=== PATIENT | female | born 1965 | race Caucasian/White ===

== ENCOUNTER 2024-03-17 06:44 | Outpatient (OUT) | payer OTHER, BC, SELFPAY ==
[2024-03-17 07:01] LABS: Eosinophils Absolute Auto 0.2 10^3/uL (0.0-0.7); Eosinophils Percent Auto 5.5 % (0.9-7.0); Hematocrit 39.9 % (36.0-48.0); Hemoglobin 13.4 g/dL (12.0-16.0); Immature Granulocytes Abs Auto 0.01 10^3/uL (0.00-0.03); Immature Granulocytes Pct Auto 0.3 % (0.0-0.5); Lymphocytes Absolute Auto 1.4 10^3/uL (1.2-3.8); Lymphocytes Percent Auto 34.2 % (20.5-60.0); Mean Corpuscular HGB Conc 33.6 g/dL (29.9-35.2); Mean Corpuscular Hemoglobin 31.5 pg (26.7-34.0); Mean Corpuscular Volume 93.7 fL (81.0-99.0); Mean Platelet Volume 10.9 fL (9.5-13.5); Monocytes Absolute Auto 0.5 10^3/uL (0.3-0.8); Monocytes Percent Auto 11.3 % (1.7-12.0); Neutrophils Absolute Auto 1.9 10^3/uL (1.4-6.5); Neutrophils Percent Auto 47.7 % (43.0-75.0); Platelet Count 220 10^3/uL (150-450); Red Blood Count 4.26 10^6/uL (4.20-5.40); Red Cell Distribution Width 12.7 % (11.0-15.0)
== END 2024-03-17 06:45 | disposition home or self-care (01) ==
LOC: LAB 06:49
PROVIDERS: PCP Internal Medicine; Visit Provider Internal Medicine
DX: D70.9 Neutropenia, unspecified (principal)
CPT/HCPCS: 36415; 85025

== ENCOUNTER 2024-03-20 17:31 | Outpatient (OUT) | payer OTHER, BC, SELFPAY ==
--- NOTE | 2024-03-20 | XR_ITS ---
The [address] [address] Patient Name: RANDA LOVE MRN: [id number] date: 1965 Sex: F Assigned Patient Location: [facility] Current Patient Location: LAB Accession/Order Number: [id number] Exam Date: 03/20/2024 17:45 Report Date: 03/22/2024 06:50 At the request of: DANITA PARISI Procedure: XR hip RT 2V w/ pelvis PROCEDURE: XR hip RT 2V w/ pelvis HISTORY: Right hip pain and right buttock pain since falling one year ago COMPARISON: None. FINDINGS: BONES:No fracture, acute abnormality, or significant arthropathy. SOFT TISSUES:No visible soft tissue swelling. EFFUSION:None visible. OTHER: Negative. XR/XR hip RT 2V w/ pelvis IMPRESSION: 1. No acute bone abnormality, significant degenerative changes, or suspicious findings to account for patient's symptoms. Electronically authenticated by: YOGESH GONZALEZ Date: 03/22/2024 06:50
--- OUTSIDE RECORDS SUMMARY | 2024-03-20 17:35 | XMS_ITS | CCD ---
Author Organization [facility] Care Team Providers Care Revenue Stamp Clerk Name Role Phone KAITLYNN AMES Unavailable Unavailable KAITLYNN AMES Unavailable Unavailable JAVY HERNANDEZ Unavailable DOMONIQUE Ga V Unavailable Unavailable KWAKU, KAITLYNN Unavailable Unavailable JAVY HERNANDEZ Primary Care Physician Kaitlynn Ames Referring Unavailable Kaitlynn Ames Attending Unavailable Kaitlynn Ames Admitting Unavailable Kaitlynn Ames Attending Unavailable Kaitlynn Ames Admitting Unavailable Javy Hernandez Attending Unavailable Javy Hernandez Primary Care Unavailable Javy Hernandez Admitting Unavailable Medications Current Medications Medication Drug Class(es) Dates Sig (Normalized) Sig (Original) betamethasone 0.5 mg/ml / clotrimazole 10 mg/ml topical cream (2 sources) Azole Antifungal, Corticosteroid Start: 11-03-2019 Lotrisone 0.05%-1% Cream 1 danny, Topical, BID Rash, 15 gram, Refill(s) 1[id number] Start Date: 11/03/19 Status: Ordered phentermine hydrochloride 37.5 mg oral tablet (2 sources) Sympathomimetic Amine Anorectic Start: 01-21-2024 End: 02-21-2024 take 1 tablet by mouth once daily 30 minutes after breakfast Phentermine (Adipex-P) 37.5 mg tablet Active 37.5 MG PO Daily February 21, 2024 1:49pm must administer 30 minutes before or 1-2 hours after breakfast Problems Problem Classification Problem Date Documented Da te Episodic/Chronic Diseases of white blood cells (1 source) Neutropenia; Translations: [Neutropenia, unspecified] 02-04-2024 Chronic Other eye disorders (2 sources) Dry eyes 11-03-2019 Episodic Other nutritional; endocrine; and metabolic disorders (1 source) Obesity; Translations: [Obesity, unspecified] 02-21-2024 Chronic Other nutritional; endocrine; and metabolic disorders (2 sources) Obesity, unspecified; Translations: [Obesity, unspecified] 01-21-2024 Chronic Other nutritional; endocrine; and metabolic disorders (2 sources) Weight gain 11-03-2019 Episodic Other skin disorders (2 sources) Eruption 11-03-2019 Episodic Residual codes; unclassified (1 source) Menopause present; Translations: [Asymptomatic menopausal state] 01-21-2024 Episodic Residual codes; unclassified (2 sources) Asymptomatic menopausal state; Translations: [Symptomatic menopausal or female climacteric states] 01-21-2024 Episodic Unclassified (2 sources) Patient encounter status 11-03-2019 Results Test Name Value Interpretation Reference Range Facility [facility] 03-17-2024 L Specimen: [id number] Received: 03/17/24 Status: VASILIY Vaughan Num: [id number] Spec Type: Impression Subm Dr: Javy Hernandez DO Tissues: PATHPER Procedures: PATHREVIEW Age/ Patient Sex Location Account Attending Physician Joy Pascual 58/F [facility] [id number] Javy Hernandez DO SPEC NUM: [id number] RECD: 03/17/24 STATUS: VASILIY VAUGHAN NUM: [id number] ANNETTE: 03/17/[address]: Javy Hernandez DO ENTERED: 03/17/[address]: Maira Gandhi SPEC TYPE: Impression DEPT: CHRISTINA Dacosta ENTERED BY: [id number] RECV BY: [id number] ORDERED: PATHREVIEW ORDERED: PATHREVIEW Pathologist Review Absolute neutropenia with occasional atypical lymphocytes. Atypical infection should be ruled out. [id number] -------- -------- Specimen: [id number] Received: 03/17/24 Status: VASILIY Vaughan Num: [id number] Spec Type: Impression Subm Dr: Javy Hernandez DO Tissues: PATHPER Procedures: PATHREVIEW -------- Patient: Joy Pascual [id number] (Continued) -------- Signed (signature on file) Nav Bell MD 03/17/24 1552 Normal [facility] Basophils Auto (Bld) [#/Vol] on 02-04-2024 Basophils (Bld) [#/Vol] 0.0 10 3/uL 0.0-0.1 [facility] Basophils/100 WBC Auto (Bld) on 02-04-2024 Basophils/100 WBC (Bld) 1.2 % 0.2-2.0 [facility] Cholesterol in LDL Calc [Mas s/Vol]on 02-04-2024 Cholesterol in LDL [Mass/Vol] 69.0 mg/dL [facility] Comment on above: <100 mg/dl [id number] 0-129 mg/dl NEAR OR ABOVE [id number] mg/dl BORDERLINE [id number] mg/dl HIGH>190 mg/dl VERY HIGH Cholesterol in VLDL Calc [Ma ss/Vol]on 02-04-2024 Cholesterol in VLDL [Mass/Vol] 10.6 mg/dL [facility] Eosinophils/100 WBC Auto (Bl d)on 02-04-2024 Eosinophils/100 WBC (Bld) 5.5 % 0.9-7.0 [facility] Erythrocyte distribution wid th Auto (RBC) [Ratio]on 02-04-2024 Erythrocyte distribution width (RBC) [Ratio] 12.5 % 11.0-15.0 [facility] Estimated glomerular filtrat ion rate (GFR) non- Americanon 02-04-2024 GFR/1.73 sq M.predicted among non-blacks MDRD (S/P/Bld) [Vol rate/Area] mL/min/{1.73_m2} >=60 [facility] Globulin Calc (S) [Mass/Vol] on 02-04-2024 Globulin (S) [Mass/Vol] 3.5 g/dL [facility] Hematocrit Auto (Bld) [Volum e fraction]on 02-04-2024 Hematocrit (Bld) [Volume fraction] 43.5 % 36.0-48.0 [facility] Hemoglobin [Mass/volume] in Bloodon 02-04-2024 Hemoglobin (Bld) [Mass/Vol] 14.1 g/dL 12.0-16.0 [facility] Laboratory - Chemistry and C hemistry - challengeon 02-04-2024 Albumin [Mass/Vol] 3.5 g/dL 3.4-5.0 [facility] ALP [Catalytic activity/Vol] 114 U/L 46-116 [facility] ALT [Catalytic activity/Vol] 21 U/L 14-59 [facility] AST [Catalytic activity/Vol] 10 U/L 15-37 [facility] Bilirubin [Mass/Vol] 0.4 mg/dL 0.2-1.0 [facility] Calcium [Mass/Vol] 9.2 mg/dL 8.5-10.1 [facility] Chloride [Moles/Vol] 106 mmol/L 98-107 [facility] Cholesterol [Mass/Vol] 159 mg/dL <=200 [facility] Cholesterol in HDL [Mass/Vol] 80 mg/dL 40-60 [facility] Comment on above: > or =60 mg/dl - LOW CARDIOVASCULAR RISK<40 mg/dl - HIGH CARDIOVASCULAR RISK CO2 [Moles/Vol] 31.9 mmol/L 21.0-32.0 [facility] Creatinine [Mass/Vol] 0.96 mg/dL 0.55-1.02 [facility] GFR/1.73 sq M.predicted MDRD (S/P/Bld) [Vol rate/Area] mL/min/{1.73_m2} >=60 [facility] Glucose [Mass/Vol] 86 mg/dL 74-106 [facility] Potassium [Moles/Vol] 4.8 mmol/L 3.5-5.1 [facility] Protein [Mass/Vol] 7.0 g/dL 6.4-8.2 [facility] Sodium [Moles/Vol] 144 mmol/L 136-145 [facility] Triglyceride [Mass/Vol] 53 mg/dL <=150 [facility] TSH Qn 1.614 m[IU]/L 0.358-3.740 [facility] Urea nitrogen [Mass/Vol] 14.0 mg/dL 7.0-18.0 [facility] Urea nitrogen/Creatinine [Mass ratio] 14.6 mg/mg [facility] Laboratory - Hematology and Cell countson 02-04-2024 Immature granulocytes/100 WBC (Bld) 0.0 % 0.0-0.5 [facility] Leukocytes [#/volume] correc alannah for nucleated erythrocytes in Blood by Automated counon 02-04-2024 WBC corrected for nucl RBC Auto (Bld) [#/Vol] 3.5 10 3/uL 4.0-11.0 [facility] Lymphocytes Auto (Bld) [#/Vo l]on 02-04-2024 Lymphocytes (Bld) [#/Vol] 1.4 10 3/uL 1.2-3.8 [facility] Lymphocytes/100 WBC Auto (Bl d)on 02-04-2024 Lymphocytes/100 WBC (Bld) 41.2 % 20.5-60.0 [facility] MCH Auto (RBC) [Entitic mass ]on 02-04-2024 MCH (RBC) [Entitic mass] 30.8 pg 26.7-34.0 [facility] MCHC Auto (RBC) [Mass/Vol]on 02-04-2024 MCHC (RBC) [Mass/Vol] 32.4 g/dL 29.9-35.2 [facility] MCV Auto (RBC) [Entitic vol] on 02-04-2024 MCV (RBC) [Entitic vol] 95.0 fL 81.0-99.0 [facility] Monocytes Auto (Bld) [#/Vol] on 02-04-2024 Monocytes (Bld) [#/Vol] 0.4 10 3/uL 0.3-0.8 [facility] Monocytes/100 WBC Auto (Bld) on 02-04-2024 Monocytes/100 WBC (Bld) 11.8 % 1.7-12.0 [facility] Neutrophils Auto (Bld) [#/Vo l]on 02-04-2024 Neutrophils (Bld) [#/Vol] 1.4 10 3/uL 1.4-6.5 [facility] Neutrophils/100 WBC Auto (Bl d)on 02-04-2024 Neutrophils/100 WBC (Bld) 40.3 % 43.0-75.0 [facility] No Panel Informationon 02-03 Eosinophils # (Auto) 0.2 10 3/uL 0.0-0.7 [facility] Immature Granulocyte # (Auto) 0.00 10 3/uL 0.00-0.03 [facility] Nucleated Red Blood Cells/100 WBC 0 [facility] Platelet mean volume Auto (B ld) [Entitic vol]on 02-04-2024 Platelet mean volume (Bld) [Entitic vol] 11.2 fL 9.5-13.5 [facility] Platelets Auto (Bld) [#/Vol] on 02-04-2024 Platelets (Bld) [#/Vol] 223 10 3/uL 150-450 [facility] RBC Auto (Bld) [#/Vol]on RBC (Bld) [#/Vol] 4.58 10 6/uL 4.20-5.40 [facility] Serum or plasma albumin/glob ulin mass ratioon 02-04-2024 Albumin/Globulin [Mass ratio] 1.0 {ratio} [facility] Serum or plasma anion gap de terminationon 02-04-2024 Anion gap [Moles/Vol] 10.9 mmol/L [facility] Serum or plasma total choles terol/high density lipoprotein (HDL) cholesterol mass concepción 02-04-2024 Cholesterol.total/Ch olesterol in HDL [Mass ratio] 2.0 {ratio} [facility] Comment on above: 3.3 - 4.4 LOW RISK4. 4 - 7.1 AVERAGE RISK7.1 - 11.0 MODERATE RISK>11.0 HIGH RISK Coding Summary.on 02-07-2023 Coding Summary. CD:[id number] W w+PGhlYWQ+TL3RDPUxY84 uyGYgvD3lO3BTCMbHTxle UCMYHAfLTnPyjwSmOS3sn XNjZXJu IC8+LJ9lQGKdKdheuGBib 4H7wHU6Q80giz6eTEvffZ Y4CSQrWmPdpdbet7luzRi 6IDcuNmluOyBt CYEerZ95UCO0pK44Nu36q EUxcUBfj8ocxUp0CeNqPX XtQFM5bYfaINwuo9MwWVW bP16ovGRtk1V2 JJVreOmbxWQjPsNcbKK5o I4mZKtocyxrm6hfhzxsHo g9rg24zCQzh6N2mVA8D8X kmeY2KBNtlVIr JyzgnVMWmE3brtrmm5wje hxvZrNyVVViOFr2GBa6UG GupJepPrJyFJ17AUS5ZRJ ndwUbC0UrATJc jSaoHgT2s6C7Od7XA9DVF ktqI5SNVOUMHNmuhSF+PC 64zo72X9WqGzpbJmi7EAN dCJT3zTG6bZ1u ADZlWQsop0I0rRJ8E8Xup jPekw4qw8ueKLXgRXenG5 6ouVFsx5I4HMWeqAR2FOM dzSgnMsJhpM33 Oyc+RTRdgUoaq5ZiDpjlq 4spc7fggRb3EkyoJDAvhh MsdVjhSYH8l0SdZu1yUTH gbUX2sDD0hH9x MfVcJhV9AEyfN217JqJxd WXtVbskF21yC4TggWF+PH ErQim4RSBebOooUN5cK3T hZGRpbmctbGVm pJupRG4oHVYxyflvEPCtm A2jCPDaA7k9WlPxCkG3TJ kbC0EuRIWmdubyBv98vM9 pGgUjMmC8DClw I1MvgaU4GFLvfZRuIBzhV XR9Y26ki4H2BMEqGIBoXS L2mFE6oY7fnOyjppthqLK mdDsgdmVydGlj NWaoNGwuU461TUCjaRlfN kNvZGluZyBEYXRlOiAgMD MvMzAvMjAyMzwvdGQ+PHR hAAE9iSblLGSi wMTjSWykDv9blBbwyVjwJ Q9xODCdnuflQCJptC6tYS RsrVZmjSmjUU3zAQIovqb wu330NwBkZOC1 KJIuiTJhT8FefA4aZyJlW VBxBTOdK6GaqOFcIClcS6 24YTtbMpC6XRWgrrIhV0K sLWFsaWduOiB0 a4Y1Lh5Mn3GywqhaO9Rgb BKvYnVyRevnPQk0G8VrDf wvdHI+SK86WYGaMZ57WRg 2PXL0bFifQTdi WWYzE4HakR1dBpDuMZSzW GRkOyc+PHRhYmxlIHdpZH RoPScxMDAlJyBzdHlsZT0 rOn4gWDUdNRBp xEzgoGAoKhOec2gpQQZuH GcdPJ5ygNdoP0HtmYT1UY Jrb4s0Lq00N58cA3AwmXV +ZJPgrSD8cRJ0 oN4gYrYaZiE8MOahO565N sMecODcBahqx8hzp4eqnG l9GuK3JZXyjiNkvWebXKM 7m0OmDl90S19h IHdpZHRoPSIxNSUiIHZhb Proqr3qcZ0aJq6+PGNvbC E5iZV1tP6kMnBzMyX1NKe gR571DwXamPSx Prwme5enf9groTd9ByKpE VKxwtSkmPdgDCX5m2HuWn 50A2YrhTrpd2ToQct7iq8 5oGEcd0X0wPF9 U0EaBPDgxeorwVUosJztW K9zJANddqnoPCJkxY0nME OsV6d7UtPyXuL4MXugS7S ksbN8JLIppWQg ATMhlRCUhS6bwjthu7pow jwcIhPlWWRvIKu9CNi8GP ZvnJmzXsNvOHR4KcR2EEG 5xMVgsQ6cvJoz waofaX3xVar+MMF9fSGix BLUVT6cZmacfAM+PHRkIH Y5gZfnBTeiFKWryT6eDUE bZ4m8WeDuHrU9 WOkhE2ViwdL5FDIeoFErL SEojOGOaX9ylwljw3lcmi ilVqMqPWNtOPt7LPi0BWP saWduOiBsZWZ0 VyR1OBJ6tCZvgI8onXotp akwbU4eXwr+QmlydGggRG Y1PTs3O8SiWeu3XWDnpUu dEK2skPEzAVhf Ms6azSykvYrlPS9xSSJrh rnmw319IzDay4udUGPqnH YeFJwwQPB2J78vh2M2KAR nUAOhJIN9tEO5 fP0tgUxfrhkmmIIlqYsec wKxfTccLLdaNNrnC683AD JaiHpwFaQbUNi1F2NjNxw 6CHYjsYwkWN2s hXOtNJpeCi9pnIeujOabW T1fDHCastfcd101EoGvb6 nqUZBusTZdQXuwMLI0V04 ck1O5YBQmAQVa VQJ9xPO2gG3qwMunsoktg GVmdDsgdmVydGljYWwtYW vrU210TWLwdOhaWaNyjQk 7S1IeYqq7DSGb gTtwKP6hrALlOYakGc3te FvonRceHJ4mLHRspbbop6 48InWho5hdTEHmuHKgVEi kCAA2H02cs3W4 CFAmEIHgCWW3vBB6uF7yk GlnbjogbGVmdDsgdmVydG ttSUyiFDzlE382TTDynAs nPlBhdGllbnQg ERymHMt3H0YyClhllVS+P S98MTJtHB71lKQsdJIja1 kcbSn6KsWwUZUqLCR4jEu gRRpbk7WfMAYh N42iwCLgo1S7ICMyqRsui QVhMuIjiTB5rV0hVLgeln gka8wgtxtmCffjf7vysz2 7nT94J40wJZqh ZHRoPSIzMCUiIHZhbGlnb p3lwZ4dUz7+NGYhyOI1tV V2hK9jFLIyKuP4IHnnF30 9InRvcCIvPjxj w4zci7urvSr8SoR6BSUxn jHneTxkPAG6g2LlXi88N9 9sIHdpZHRoPSIyMCUiIHZ kyJibma2laR1p Ii8+GWCilUC8mTF5aW3jA hYeShQ1CGmmV984NoQwqS NkDhddA22eU9XpuQS+PHR rFze2BNVtfZny TH0ynFNyMKvoHm5zLLY9X eFnFpQeJBxmX6VbAHWcng svfthkwKX4ZRDjZFWpjE2 1Rq7kcRylHWRv yCOHsJ7dukycb6bdmtynB hOxYSMzEGl7HLb3RGXlsY coLfMyHMQ5UaW5IDD5wLK zmR2lyXgwnyky iZ7wT4TcYQJvtwqyFl67u S6iUoYeQvQ0JEbzMez+Vk JRSN7MVL7HHVBNYD5HCTV gTTwvdGQ+PHRk KUQ1dGtwADmkTPWogJ6hB HKrB0h4SqOnGnM4LQbyS8 CgBFPisozySn99oK7uFpK kEtU7FCqfZ5Ry loZ3WMWssKCpWJocBTW0N 77ma4Y7MKDmRMGjMEI0kI N9qJ7nrCoyhfffeSZmzBu gdmVydGljYWwt MDkuM240PUKkvZncUePlO hF6YsH7Sxh2I8HzDzg1QB YzhZyhSG8hpNNaFHspTj9 jbTwrqVfyPB8n GPFrpmbbDCMerH3pYQUbb TAbcCqvSA1nQSYwcywrx2 79FmJzXXH1BVUupSTcB7U dmD3rTtFpLYIk QEApZ2XvsODgBRtfN673W BjaDzE6PXAouaHzU2NiII EjqHkfYbQ6e3K3Jh74FGH ZZWFyczwvdGQ+ DNRmVUX1wOjjCBxuXJDgc I6fDUBmL1u0SfDyTeE3ID dcU1VeYUEzbtjgTy54vP4 nIdXgLcY6ZUku O0GyspC4ZTDoySUtMKthZ ST0R40pu0M3VDWjXCWcXN X3oDV2cO3gyQwrbajsiVB mdDsgdmVydGlj WIbeDTgeJ395JFQbvQgiP kZlbWFsZTwvdGQ+PHRkIH O1sLayYYsdBHGrmV9xYGN oZ3o6TuVlVnT0 ZDywG2KtOHNpsvveEn17f J9bUjQlNgZ3ETnxH8Fgrm U3RLIabPGqNZkfDQU2W98 ao9X9YJUlFUBz FDD9aUW7nD7gfMuzudvxm GVmdDsgdmVydGljYWwtYW frP761EQQmuTptQz67cYK knJsaatX2W0Ek PjwvdHI+IR76TLErJE28p GYebDPfi7zhqOq1JxFyMA JjBLD9fIusECtpr9XuCLX wF54anLBks8L9 MVRjdSxwfFDsLoZhdCP0b C0qEMxmhhcws4jpugdvXb pkw5yzxj75rR54O08jPQj pZHRoPSIzMCUi VLAqmZhkea2hsU9jMd8+P WVdyFY9zUK9kC1fBaFpNk W7NMftL364YhHhsDAhDzw nq9vpx4zozUt4 TsVbQGVfytCyxComSKZ0m 1MwPo71U27yIVeoOSOqDV SnWQMhATEbsUepxm2trX9 wIi8+ST9aj3wh eg96zZ87zSN+RPLjJWE3y VxzOXrcUAQmjF2kKOkjTs A8GABjIaBwoU89nIIiFMs iLx3ozDxjbZfo HR2bXLDyzhplf771YzXtg 3nrQCOqtNFvAJiqPEQ6H4 1fh6O7WUSpFHJzTYE4yDY 5pA1yiUeuwcuy bGVmdDsgdmVydGljYWwtY JamU455CKUwqUuxHbDcaQ PjY7eadwLNMU8aUihvcNJ +NMVpRJF7cOcz BQigIJApuI6iWSPjN1h5R oKkHpG8LZciU1BcptJ5LH SrbGMfWGLtxFLPuW4kyli vh3sqwbufAsSa CFDtOWe6HNr2THBulNvlX aRlITX2NnH5XUJ4vLZfqW 8zvFrychyfaV7vQel+Rkl OOjwvdGQ+PHRk ZWL1wVjuUUzkYTAsaM7wS CMsH2s7FdKyYfP9NVvjB3 JtnbM2MPCjkIRwIQGxgUB BsH0sgrbil9gd bktaAeEyIZOsHHq7OOg3V MQqkQzlKoVmARM7PcP8HF J2gFUhiV8pzRhcjzfywZ2 wOyc+TVJOOjwv dGQ+HEXvJJO4bTauAEkeA XOvbF9nWDTaY4r2AbOnUa K0RFtiB2SsorQ2KCIywIQ vFSYtkVANcB8q cdqvk0eqvwjsDbIeQMBxX Aq9QVp5MCLylFsgQrNaJK F1ZvA2OCN1tEMsiV4sgCb pfownzD0bXzu+ DJL8QIC4DZ81VX56Q6NxK jwvdGFibGU+PHRhYmxlIH dpZHRoPScxMDAlJyBzdHl pOP6zHv6zYXQh LWNvbGxh (more content not included)... Normal [facility] Mamm Screen w/CAD if perf and 3D Bilon 01-31-2023 [place] Mamm Screen w/CAD if perf and 3D Ricky Exam Date/Time: 01/30/2023 07:56 EDT Reason for Exam: SCREENING Report IMPRESSION: BIRADS 1 NEGATIVE, NORMAL INTERVAL FOLLOW-UP.12 MONTH RECALL. CLINICAL HISTORY: SCREENING. COMPARISON: 10/31/2019. COMMENT: Routine views and tomosynthesis views of both breasts were obtained. There are scattered areas of fibroglandular density. No dominant breast mass nor neoplastic calcifications are identified in either breast. There has been no significant change from the previous exam. The examination was reviewed with Computer Aided Detection. Breast Density: No Mammography is very important to your health. The current [employer] and National [employer] guidelines recommends annual mammography beginning at age 40. This facility utilizes a reminder system to ensure all patients receive reminder notifications at the appropriate time based on the recommendations of this exam. Board Certified Radiologists. Accredited by the ACR and FDA. Ordering Provider: Kaitlynn Ames FINAL REPORT Dictated: 01/31/2023 2:22 pm Bhargav Alba M.D. Signed (Electronic Signature): 01/31/2023 2:22 pm Signed by: Bhargav Alba M.D. Transcribed by: SARAH Technologist: [facility] Assessment: BI-RADS Category 1-Negative Recommendation: Normal interval follow-up Normal [facility] Consent for Treatmenton 01-10 Consent for Treatment [id number] .[id number]:[address] [facility] Physician Orderon 01-10-2023 Physician Order [id number]#1 .00CD:[address] [facility] PAP [id number] 08-07-2022 Cytology report Cyto stain Doc (Cvx/Vag) Note Invalid Interpretation Code [facility] Comment on above: Result Comment: TEST S RESULT FLAG UNITS REF RANGE LAB Clinician Provided Cytology Information Source.............[employer] No. of containers..01 ThinPrep Vial DIAGNOSIS: 01 NEGATIVE FOR INTRAEPITHELIAL LESION OR MALIGNANCY. Specimen adequacy: 01 Satisfactory for evaluation. Endocervical and/or squamous metaplastic cells (endocervical component) are present. Performed by: Billy Gray Wedding Designer (ASCP) . 01 Note: Note 01 The Pap smear is a screening test designed to aid in the detection of premalignant and malignant conditions of the uterine cervix. It is not a diagnostic procedure and should not be used as the sole means of detecting cervical cancer. Both false-positive and false-negative reports do occur. Test Methodology: Note 01 This liquid based ThinPrep(R) pap test was screened with the use of an image guided system. FLAG LEGEND: L-Low Normal,H-High Normal,LL-Alert Low,HH-Alert High <-Panic Low,>-Panic High,A-Abnormal,AA-Critical Abnormal Performed at: [address] [address] Sveta Masters MD, Performed By: #### 3 [id number] #### [facility] [address] [place] [id number] HPV 16+18+31+33+35+39+45 +51+52+56+58+59+66+6 8 DNA Probe+sig amp Ql (Cvx) Negative Invalid Interpretation Code Negative [facility] Comment on above: Result Comment: This nucleic acid amplification test detects fourteen high-risk HPV types (16,18,31,33,35,39,45,51,52,56,58,59,66,68) without differentiation. Performed at: [address] [id number] MD Guerrero Bangura Performed at: = [address] [id number] MD Guerrero Bangura Performed By: #### 3 [id number] #### [facility] [address] [place] [address] Coding Summary.on 08-01-2022 Coding Summary. CD:[id number] G h0bWw+PGhlYWQ+UH8MWHF hZ87lbVImgQ0RG7sLRP8M HOTNBOEKBJ6GEG4bjCW3W AdjT6YgoiWv BcfyeVVbFW81KEe6QYS9n NmgJQxdaJ3xsSNkL7u6Fe XkMQ74hO61CEkiXRQlOnI 3LjZpbjsgbWFy U7xsKlImyXDeIui+PHRhY mxlIHdpZHRoPScxMDAlJy YpnDduLG4fQm7cPEMmGRX vbGxhcHNlOiBj k4usSPJuWHpnLK4hqWftQ 6AggVD2NXWvc9s4Ty50aI I+WDDjXAU0qPclIZuwh51 6XnCmh0wfYEM6 kSWfCAynURP5B64wg2N2W VOdZBQsGYW6hPP5bA0qvB yirzyzG7JmaTTiShS1HGY 2fMJjhY3nyTum cdtnlI0iGbj+Z65HDY0JO IUILP0ZFpg1P9SzMfnncR I+NF60DTBtUG95qMAilOY mc3gpaIl4HeSd YTMwVQH4oBlmNQqoz2PrI GHdD70ceULnv1Z1NOYotI rafKTgMuLioYN7iP3lLMe yktmdf6ewobsc Zloos9nbye28qY49K42dV BgkZSXpTRT0FMKuPUOlvC pupi3wkP3hMq1+UJrsi2w ci2phuPx6RxUm RQIavoAtnSfqQTT6b1WqZ q08P2JmnIzqw6QlEfi6sg 21nOEnd9Q8xIS7YZveYSD ixS2mKYwjJaO4 HHDnKiPitX98iXBoQTzpL s6lwAbksMhkPG1xWEElgw qbZOTkvF0wQLKhqKNbwVn uOT4pQMXaqquf d176QgFzVHO2AQQlqKVqE 0HptL2nUkOhUFKpWLUwC7 PquQRyPCobZ994AOzgOlA 5VVHrwoLmM2Lw ZJQffWyzDhU1l9K1Jp2Yt 7LxmhjtMVF2CEsbFTX4Jk DhMcRdBzC3B8InAwj7ODR jpDerRW8hY6Qr KCKbqrgjbaerxJQ3DXCvJ RHjgI20bJXxMKbgWv3rs1 K5y977QELpOHTwkR62Du2 udDogMTBwdCBU wE2jjjgcd9mpkajqVoImN OXnTAy9JHp8AHTvpRjzAd YjTNW6KhM7MXG0pHQtaJ9 vnKljhfdygO0d Oyc+M97syF1dQSX3DUF2s puwHCElclHcDI68JT57N8 RyPjwvdGFibGU+PGRpdiB svOqeLW0xEuGf a9ogl3VjTMisX6CoZHIaE AqjMaj8XDSwQOU0aSX6kM 2fDBAxRKohe8D9nWK8H2S rqgEkgk8xt4hl FRIaPKksH80riNZke0Z4Y BIupCT1ENDprYvkOwLrgK 93Oyc+DDBvtDims0NyZrd vm4gdv0mjyNm9 QzJkOKDewjOcjDuwEWF8i 7RpQu48T84bHJorFCZuMQ UyFGXjGEIiaGfpwo4ofM7 wIi8+PGNvbCB3 vHN1nN3kONAxPxL3JDlcC 853WiSjqLHtXgeer2wjy6 nucNz9YmUvDMMmnvYqlFr bCXE6h9OcZw50 W00kRUkyBVOaPRHjZXBcP HHnaUwiur8jsH1gVn2+PC 8sc8pvjj27gC49zGB+PHR pSIO1iDejZGrb QARzjC9dZBjiLkJ5NKBmK zCyvI31bHXeMEalAa7jwI aqzAkwEA3kPKZzgydje99 6VkIdb2jzZJAt tHClIWepCCM5Q35wa7E9W PTqKILdEAD7rTJ9tF2tsF lnbjogbGVmdDsgdmVydGl tCCmsNUveT561 IHRvcDsnPlBhdGllbnQgT cKoEZj4E1KvSww9BKGhoR xkGY3piLAkGKeoYc6rcKb efJtbEI6dARZp whprz473CmCin0haTVVol VZpAOwfEYS6F82tr3L3NT QkYQLvPWO9fUJ5tW5udRu nbjogbGVmdDsg qqCbjSwvXUakWPyhM826K HRvcDsnPkJpcnRoIERhdG R8US82EO20xADxz7Q5iDP 6D6NeYMSsdfso fcstiUB0WZJpKZIswR30Z l5fmKkiYj9tIBKzWLU9YK MjgSHzL7MaeN7nVaFeXGJ yFJQoY0RjvGMn LIpgK447UTrhFhP4PAZxy jNbD2SwVGMhoHasDzA4o7 V4If3KT4X9TE39JC09oLM vi1B2oFA6Z6Um URMdqpiiokdnsIF4COViI EGhxZ09Ay1tzLsgUk2zDB GcFDX5SPXlgLBzP1OrcL8 yOiAjMDAwMDAw G0VjsJXvQRtaS456AAqgC hG4FWWavuZiJ4JeBYSfvR doHpQ3p9G8Kw2VZBw5IX6 0AF83rZFub9H1 mCN3P7AsMJPxtknousicp MB5KMWsQBEjxG48Uz7ccI dkRh4wINCnKCO3LBQsxQP iI1AotH0iQlXu ZRWtUZBeL3ZifWTsYThkG 730ZPecFaO5DCKacaMsF4 RqAVExbDbvXpK8q2U0Um5 IUQQxOF58PTS1 qPZ7GW38KD44F7VoXoolu GFibGU+PHRhYmxlIHdpZH RoPScxMDAlJyBzdHlsZT0 vHp5sJLBjETMh dKrceLCpIfEyw4daNDQgL JduRG5krMqcK3MajZR1NA Hyn9v8Rh85U72wB5LpfHE +WQOrmDU7qAB3 mP0oSyBbBuQ5CWqnE528R iJwtMDxQkala9xqb5hfqL w7NkL3FIFiwcOqmVmjHUP 3p4CrQh90J93p IHdpZHRoPSIxNSUiIHZhb Mzvlo3lwC1sUv6+PGNvbC V5vNY5oY1cJwIdVeQ0WAd rC844GjTeeRYa Qglnm4tck5jyvXj1EgDkL EGrkkZcpCeuJRK4j9VvZx 84W3JceVubi0CwCwm2gr8 2kZZli9P7fZT5 O0XxLNBqkgzbiJIejQwmI J1oTZOzidgrXUSegD5wVN AfN1e8DrUzKdD2NJrcB7W zltS1XZOrcSDz TWgfEYJ3T54ya9I0EJPoW UJtRIT7xZZ6oQ4cgZalpp ogbGVmdDsgdmVydGljYWw pRHscR149QNZu rEazZZPsaQ2jLXAyqOHdo EydHX6eUYCkgmcjMlWBOI VOVElORSwgSlVOTklFIE0 0M6FbXgr7TTAz tYlyFX0wiIOyKSubMq4he GileRzbEE7xDZAmycbzAF NqhD2hWFHehHVrkFsmVY5 jJKWyrosfp079 LlVeNDP3YNXemDJjM7Fja V4zJcAnEULjXNYpU8AyxW HgJQfeV112DRtyDoF3RSX rjuAhC4OzFMWm hQtkRkE0v0P2Bd7dYz1sM B3nIBB6RE67DM65dVYqe8 E7fMB6R6RgIQXzmnbqbxi jyTH6EOPsPLVj xK58rRZxCFnxCt5fr6V2g 620RBNzIZYdeT18Uz4prN hnVPIarVDFlC6mrsets0t vcjogIzAwMDAw CHv3NXb0SQOnpDxhOlDoD SP2XsZ1FXQ7tCIacL8dgG ccwdaijO6vAgx+NTQgWWV oiuV9L3IxOsm2 VLHcrOiqFE8uoJMiVJctP j5abIznmVfpJH4aZZVgin wlQRSxuY6fQBPdkZRpzHl nIG0yEZFtvryz e202JzJyCKS4AELooDPiI 6IoiF6sGhPtYWBbGUReF4 ScbLYgMHpuW065NJahHtR 0CXIwpeUuL7Wu EIDilPapWmV9l9T5Ks1AI S6jjUK4D2DvShy6HQPzbM lxJQ3vtDOjSPzsFe6eiHt lnPybMI7qNYUs mqllMAUvaV2aXKQzmBTwi PfgUV0dOHAnfferq637Ow JaIHU0SWHnxNBiO4WckL4 yOiAjMDAwMDAw N1IseXDlNLpoD132SJbeM dR3BPZjygQtJ5MnIWKhlT ikMvU5m4R8Qo3DWMJjIQT lxOQdUhD6F3Uq PjwvdHI+YQ39TJPjCR97o KVxjWGfp9svaPt0DcCqSS HtRWI0dJkmUIcji5LjHHQ xV63fbPHux7G9 BKXzoXvkxZBcDsBkhIL0t S4nIHbfqhpyq5niqmijLx hcx4srlq53nU42W05wQJv pZHRoPSIzMCUi SVLtyXnxuy8tiD8fXd8+P HTvmSA4tLU1xH0gCtAzNb G9FDlxF623OrDzgSRlUgv eh9oue8yttUx4 FvYlZNQhmbVyzShpQJC7b 4EbXj48Y55nOZzxOFYsNB GsRIEdIOOzpYydxb6ivX8 wIi8+JY7vu5du vi11mQ28lDF+UBFdPLS4o SyoTMvmVGOdrG5rFHanZy J8DKEpRqPzdM20uKQtOUn lLl6bpFxbtTnk TC1eWNNffmuwu512RlSjr 3sjBBAzfZUmCWuuLEU0J1 6fx4I3IVZcEDEcCEF0jTF 2dN8qdBjssoiw bGVmdDsgdmVydGljYWwtY YrtY586ZGCowAuhRxFudQ NeD2fafpKLJD7pRixgwRH +GDEfFXB5sYpk GXnvLJVkaQ1yIEEsU2h5D bLmNqP2NZmyT9FtepE9NU IgjHImPVAhlVWEnP2zsvo te4dghmgxCeXv VLKgIEv8AXt8ESRqfZofK iJnGBU6EyB3JTN9xDCxnU 1ipOgxcvgcpD4eSmg+Rkl OOjwvdGQ+PHRk XVY8gMihKUyuSZUasG1gR YGnM8g3QrVwLjT5NXktV3 JqcmR8CAZpbGRmSLFpuUW QoH2ontcxr2jd sqjeBwTeDEFrCOl8UOh4U IJmsVyqVtNiZPH1LsO7WM V2uLFlaQ9geTaypbcieB7 wOyc+TVJOOjwv dGQ+XUAuDSR6eZuqUUtjC BRawC4oWYSqX5z3BxPvRr X7GOooQ1ThptF1YRKkeCD cRCYxsRBJpV1i zbpyr7osjmepCeZbKXYfL Ss2NQy2EVLcbKmfZtBfEJ K7RrA3SDM1xNLrhY4ycAp ivkmzqK3vGiq+ CXI9KPD6VP52XM76F1QmB jwvdGFibGU+PHRhYmxlIH dpZHRoPScxMDAlJyBzdHl uUQ5nFf6sFBBj LWNv (more content not included)... Normal [facility] PAP [id number] 07-30-2022 Collection Technique SWAB-SPATULA Normal [facility] Comment on above: Performed By: #### 3 [id number] #### [facility] [address] [place] [address] Gynecological Body Site ENDOCERVIX Normal [facility] Comment on above: Performed By: #### 3 [id number] #### [facility] [address] [place] [address] Previous Cytology Negative Normal [facility] Comment on above: Performed By: #### 3 [id number] #### [facility] [address] [place] [address] Previous Treatment NONE Normal [facility] Comment on above: Performed By: #### 3 [id number] #### [facility] [address] [place] [address] Physician Orderon 07-27-2022 Physician Order [id number] [facility] MG MAMM SCREEN RICKY W CADon 1 12-09-2016 MG MAMM SCREEN RICKY W CAD [address] [place] [address] Patient: JOY PASCUAL Exam Date: 10/09/2017DOB: 1965 Gender:F : DR KAITLYNN AMES Admission #: [id number] : DR JAVY HERNANDEZ Order #: [id number] HERE TO VIEW EXAM RADIOLOGY REPORT PROCEDURE: MAMMOGRAM BILATERAL SCREENING DIGITAL WITH COMPUTER AIDED DETECTION COMPARISON: MG MAMM RICKY SCRN W CAD DIG, 11/12/2014. INDICATIONS: ENCOUNTER FOR SCREENING MAMMOGRAM FOR MALIGNANT NEOPLASM OF BREAST Calculator Name NCI Breast Cancer Risk Assessment Tool 5 Year Breast Cancer Risk 1.80%Lifetime Breast Cancer Risk 16.70%Personal Breast Cancer NoPersonal Ovarian Cancer NoTreatments NoneFamily Cancers Aunt-maternal with breast cancer at age 37; Aunt-maternal with breast cancer at age 45; Aunt-maternal with breast cancer at age 45; Mother with breast cancer at age 42; Grandmother-maternal with breast cancer at age 45. LOCATION: [facility] BREAST COMPOSITION: Heterogeneously dense, which could obscure small masses (51-75% glandular). FINDINGS: DIAGNOSTIC CATEGORY 2--BENIGN FINDING. Scattered benign-appearing calcifications are present. Scattered benign-appearing lymph nodes are present. RIGHT BREAST: No significant suspicious finding. Square marker indicates a skin blemish, no corresponding mammographic abnormality. LEFT BREAST: No significant suspicious finding. Round mole marker RECOMMENDATIONS: ROUTINE MAMMOGRAM AND CLINICAL EVALUATION. PLEASE NOTE: A NORMAL MAMMOGRAM DOES NOT EXCLUDE THE POSSIBILITY OF BREAST CANCER. A CLINICALLY SUSPICIOUS PALPABLE LUMP SHOULD BE BIOPSIED. Dictated by: Domonique Shaw MD on 10/09/2017 at 07:59 Approved by: Domonique Shaw MD on 10/09/2017 at 08:01 Normal [facility] Vital Signs Date Time Vital Sign Value Performing Clinician Faci lity 02-21-2024 13:34-0400 Body height 154.94 cm [facility] 02-21-2024 13:34-0400 Body mass index (BMI) [Ratio] 30.8 kg/m2 [facility] 02-21-2024 13:34-0400 Body weight 73.99 kg [facility] 02-21-2024 13:34-0400 Diastolic blood pressure 78 mm[Hg] [facility] 02-21-2024 13:34-0400 Heart rate 90 /min [facility] 02-21-2024 13:34-0400 Respiratory rate 12 /min [facility] 02-21-2024 13:34-0400 Systolic blood pressure 123 mm[Hg] [facility] 01-21-2024 13:40-0400 Body height 154.94 cm [facility] 01-21-2024 13:40-0400 Body mass index (BMI) [Ratio] 32.9 kg/m2 [facility] 01-21-2024 13:40-0400 Body weight 79.15 kg [facility] 01-21-2024 13:40-0400 Diastolic blood pressure 74 mm[Hg] [facility] 01-21-2024 13:40-0400 Heart rate 78 /min [facility] 01-21-2024 13:40-0400 Systolic blood pressure 104 mm[Hg] [facility] Encounters Encounter Date Encounter Type Care Provider Facility Start: 03-17-2024 End: 03-17-2024 ambulatory Javy Hernandez Facility:[facility] Start: 02-21-2024 End: 02-21-2024 ambulatory [facility] Work Phone: Start: 02-21-2024 End: 02-21-2024 Patient encounter procedure [facility] Work Phone: Start: 02-04-2024 Non-patient / Non-visit [facility] Work Phone: Start: 01-21-2024 End: 01-21-2024 Encounter for general adult medical examination without abnormal findings [facility] Start: 01-21-2024 End: 01-21-2024 Patient encounter procedure [facility] Work Phone: Start: 01-20-2024 Patient encounter status [facility] Start: 01-30-2023 End: 01-31-2023 ambulatory Kaitlynn J Kwaku Facility:[facility] Start: 01-30-2023 End: 01-30-2023 Patient encounter procedure Kaitlynn J Kwaku [facility] Start: 07-27-2022 End: 07-28-2022 ambulatory Kaitlynn J Kwaku Facility:[facility] Start: 07-27-2022 End: 07-27-2022 Lab Drop off Kaitlynn J Kwaku [facility] Start: 10-09-2017 End: 10-10-2017 Ambulatory KAITLYNN KWAKU Facility: Procedures Date Procedure Procedure Detail Performing Clinician Start: 11-11-2017 Cyst of left breast (disorder) Kaitlynn Kwaku Ligation of fallopia n tube Kaitlynn Kwaku Plan of Treatment Date Care Activity Detail Author Comprehensive metabo lic 1999 panel - Serum or Plasma [facility] Immunizations Immunization Date Immunization Notes Care Provider Anisha hamm NEGATED: Highlighted row has not occurred!11-03-2019 influenza virus vaccine, live, attenuated, for intranasal use Kaitlynn Ames [facility] Payers Date Payer Category Payer Self-pay 2022 Unknown [id number] 1965 Unknown [id number] 1965 Unknown [id number] 1959 Unknown [id number] Unknown [email or web address] Benefits [id number] Unknown [id number] Social History Date Type Detail Facility Start: 05-03-2019 End: 01-13-2024 Never smoked tobacco (finding) [facility] Never [facility] Female [facility] Start: 1965 Sex Assigned At Female F [facility] Evaluation + Plan note Note Date & Type Note Facility Evaluation + Plan note No data available for this section [facility] Evaluation note Note Date & Type Note Facility Evaluation note Diagnosis Onset Date Menopause acute Obesity acute Wellness examination acute Menopause acute Obesity acute [facility] Work Phone: Hospital Discharge instructions Note Date & Type Note Facility Hospital Discharge instructions No data available for this section [facility] Progress note Note Date & Type Note Facility Progress note No data available for this section [facility] Summary Purpose Family History No Family History Records Found Relationship Condition Age at Onset Recorded Date/T nathen father Diabetes mellitus Unknown Not Specified Disorder of lung Unknown Advance Directives No Advanced Directives Records Found Advance Directive Response Recorded Date/ Time Advance Directives No January 12 1:03pm Chief Complaint and Reason for Visit Chief Complaint WELLNESS - discuss A dipex 1 Month Check Up Reason for Visit Menopause Obesity Wellness examination Menopause Obesity Additional Source Comments INFORMATION SOURCE (unrecogn ized section and content) DATE CREATED AUTHOR 05/06/2018 [facility] DATE CREATED AUTHOR AUTHOR'S ORGANIZ ATION 02/12/2023 Andrea Alaczar [facility] DATE CREATED AUTHOR AUTHOR'S ORGANIZ ATION 03/18/2024 [facility] Care Team (unrecognized sect ion and content) Team Status: Active Member Role Status Dates Javy Hernandez , DO Primary Care Provider Active Team Status: Inactive Member Role Status Dates Javy Hernandez , DO Primary Care Provide r, Attending Provider Active Start: January 21, 2024 End: January 21, 2024 Team Status: Active Member Role Status Dates Javy Hernandez , DO Primary Care Provide r, Attending Provider Active Start: February 04, 2024 Team Status: Inactive Member Role Status Dates Javy Hernandez , DO Primary Care Provide r, Attending Provider Active Start: February 21, 2024 End: February 21, 2024 Goals (unrecognized section and content) Goals may be documented in a n alternate section FOR RECORDS PERTAINING TO PATIENTS WHO ARE OR HAVE BEEN ENROLLED IN A CHEMICAL DEPENDENCY/SUBSTANCEABUSE PROGRAM, SOME INFORMATION MAY BE OMITTED. This clinical summary was aggregated from multiple sources. Caution should be exercised in using it in the provision of clinical care. This summary normalizes information from multiple sources, and as a consequence, information in this document may materially change the coding, format and clinical context of patient data. In addition, data may be omitted in some cases. CLINICAL DECISIONS SHOULD BE BASED ON THE PRIMARY CLINICAL RECORDS. [employer] [facility] provides no warranty or guarantee of the accuracy or completeness of information in this document.
== END 2024-03-20 17:32 | disposition home or self-care (01) ==
PROVIDERS: PCP Internal Medicine; Visit Provider Internal Medicine
DX: M25.551 Pain in right hip (principal)
CPT/HCPCS: 73502